=== PATIENT | male | born 1985 | race Caucasian/White ===

== ENCOUNTER 2016-11-19 21:34 | Emergency (ER) | payer SELFPAY ==
--- NOTE | 2016-11-19 22:02 | RAD ---
PORTABLE CHEST ONE VIEW: 11/19/16 at 9:44 p.m. HISTORY: Chest pain. FINDINGS: There are changes of median sternotomy. The heart size is normal. The lungs are expanded without foc al areas of consolidation, pneumothorax or pleural effusions. There is no evidence of riddhi pulmonar y edema. IMPRESSION: No acute process. POS: [facility]
[2016-11-19 22:21] LABS: #Basophils 0.1 thou/uL (0.0-0.2); #Eosinphils 0.1 thou/uL (0.0-0.7); #Lymphocytes 2.4 thou/uL (1.20-3.40); #Monocytes 0.9 thou/uL (0.11-0.59); #Neutrophils 6.1 thou/uL (1.40-6.50); %Eosinophils 0.6 % (0.0-10.0); %Lymphocytes 25.2 % (21.0-51.0); %Monocytes 9.2 % (0.0-10.0); %Neutrophils 64.1 % (42.0-75.0); Hemoglobin 19.2 g/dL (14.0-18.0); Mean Corpuscular HGB CONC 36.3 g/dL (32.0-36.0); Mean Corpuscular Hemoglobin 32.7 pg (27.0-31.0); Mean Platelet Volume 9.1 fL (7.4-10.4); Platelet Count 144 thou/uL (130-400); RBC Distribution Width 10.8 % (11.5-14.5); Red Blood Cell (RBC) Count 5.86 mill/uL (4.70-6.10); White Blood Cell (WBC) Count 9.4 thou/uL (4.8-10.8)
[2016-11-19] MEDS ORDERED: Lorazepam 2 MG/ML VIAL ONE (22:25)
[2016-11-19 22:32] LABS: CKMB 0.9 ng/mL (0-6.6); Troponin I 0.015 ng/mL (< 0.028)
[2016-11-19 23:18] LABS: ALT (SGPT) 48 U/L (8-55); AST (SGOT) 29 U/L (5-34); Albumin 4.3 g/dL (3.5-5.0); Alkaline Phosphatase 87 U/L (40-150); Anion Gap 17 mmol/L (10-20); BUN (Urea Nitrogen) 16 mg/dL (8.9-20.6); Bilirubin, Total 1.1 mg/dL (0.2-1.2); Calc. Creatinine Clearance 0 mL/min (70-130); Calcium 9.2 mg/dL (7.8-10.44); Carbon Dioxide 22 mmol/L (22-29); Chloride 105 mmol/L (98-107); Estimated GFR-MDRD 83; Globulin 3.8 g/dL (2.4-3.5); Glucose 112 mg/dL (70-105); Protein, Total 8.1 g/dL (6.0-8.3); Sodium 140 mmol/L (136-145)
== END 2016-11-19 23:40 | disposition home or self-care (01) ==
LOC: MADERS 21:34
DX: R07.9 Chest pain, unspecified (principal); I10 Essential (primary) hypertension; F41.9 Anxiety disorder, unspecified; F17.210 Nicotine dependence, cigarettes, uncomplicated; F32.9 Major depressive disorder, single episode, unspecified; Z79.82 Long term (current) use of aspirin; Z79.899 Other long term (current) drug therapy
CPT/HCPCS: 71010; 80053; 82553; 83880; 84484; 85025; 85379; 93005; 96374; J2060